=== PATIENT | female | born 1950 | race Caucasian/White ===

== ENCOUNTER 2023-12-06 11:55 | Inpatient (IN) | payer MEDICARE, SELFPAY ==
[2023-12-06] VITALS (15 sets, daily range): BP systolic 94–148; BP diastolic 49–65; PULSE 52–66; RESP 7–19; TEMP 34.7–36.4; O2SAT 88–99; BMI 31.3
--- NOTE | 2023-12-06 12:09 | DI.RAD.S_ITS ---
PROCEDURE: XR HIP W PEL IF DONE LT 2V INDICATIONS: fall, unable to move extremity TECHNIQUE: AP pelvis with lateral view(s) of the left hip(s). COMPARISON: None. FINDINGS: Bones: Comminuted, displaced intertrochanteric fracture of the left femoral neck. Pelvic ring appears intact. No suspicious bony lesions. Moderate-severe degenerative changes of the bilateral hips. Lower lumbar spondylosis. Soft tissues: The visualized bowel gas pattern is normal. No suspicious soft tissue calcifications. IMPRESSION: Moderately comminuted, displaced intertrochanteric left femoral neck fracture. Moderate-severe degenerative changes of the bilateral hips. Lower lumbar spondylosis. Dictated by: Alex Holliday M.D. on 12/06/2023 at 12:47 Approved by: Alex Holliday M.D. on 12/06/2023 at 12:48
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
--- NOTE | 2023-12-06 12:28 | DI.RAD.S_ITS ---
PROCEDURE: XR KNEE LT 1TO2V INDICATIONS: femoral neck frac TECHNIQUE: To views of the knee were acquired. COMPARISON: None. FINDINGS: Bones: Limited evaluation secondary to positioning. No definite fracture is seen. No suspicious bony lesions. Soft tissues: No joint effusion. No suspicious soft tissue calcifications. Atherosclerotic vascular calcifications. IMPRESSION: Evaluation is limited secondary to positioning. No definite fracture is seen. Dictated by: Jhonny Bhandari M.D. on 12/06/2023 at 13:53 Approved by: Jhonny Bhandari M.D. on 12/06/2023 at 13:54
[2023-12-06] MEDS: ONDANSETRON 4 MG/2 ML INJ IV (12:39)
[2023-12-06] MEDS: MORPHINE 4 MG/ML INJ IV (12:39)
[2023-12-06 12:41] LABS: INR 0.9 (0.9-1.3); Prothrombin Time 10.8 SECONDS (9.4-12.5)
[2023-12-06 12:42] LABS: Add Manual Diff / Slide Review NO; Basophils Absolute Auto 0 /uL (0-100); Basophils Percent Auto 0.5 % (0-2); Eosinophils Absolute Auto 200 /uL (0-450); Eosinophils Percent Auto 2.2 % (2-4); Hematocrit 36.7 % (36-46); Hemoglobin 12.4 g/dL (12.0-16.0); Lymphocytes Absolute Auto 2400 /uL (1100-4500); Lymphocytes Percent Auto 26.1 % (25-40); Mean Corpuscular HGB Conc 33.7 % (30-36); Mean Corpuscular Hemoglobin 32.4 PG (26-34); Monocytes Absolute Auto 600 /uL (0-900); Monocytes Percent Auto 6.7 % (3-14); Neutrophils Absolute Auto 6000 /uL (1500-7000); Neutrophils Percent Auto 64.5 % (50-75); Platelet Count 221 X10^3/uL (150-400); Red Blood Cell Count 3.82 X10^6/uL (4.0-5.2); Red Cell Distribution Width 12.9 % (11.6-14.8); White Blood Cell Count 9.3 X10^3/uL (4.5-11.0)
[2023-12-06 12:43] LABS: PTT Partial Thromboplastin Tim 30 SECONDS (25.1-36.5)
[2023-12-06 12:50] LABS: Alanine Aminotransferase 19 IU/L (<35); Albumin 3.8 g/dL (3.5-5.0); Albumin Globulin Ratio 1.5 (1.0-2.8); Alkaline Phosphatase 78 U/L (38-126); Aspartate Aminotransferase 46 IU/L (14-36); BUN Creatinine Ratio 21.9 (6-22); Bilirubin Total 1.2 mg/dL (0.2-1.3); Blood Urea Nitrogen 16 mg/dL (7-17); Calcium 9.5 mg/dL (8.4-10.2); Carbon Dioxide 24 mmol/L (22-32); Chloride 105 mmol/L (98-107); Creatine Kinase 62 U/L (30-135); Estimated Glomerular Filt Rate > 60 mL/min (>60); Globulin 2.5 g/dL (1.7-4.1); Glucose 140 mg/dL (80-110); HEMOLYSIS < 15 (0-50); Potassium 4.4 mmol/L (3.4-5.1); Sodium 136 mmol/L (137-145); Total Protein 6.3 g/dL (6.3-8.2)
[2023-12-06] MEDS: HYDROMORPHONE 0.5 MG INJ IV ×3 (13:02→22:38)
[2023-12-06 14:00] LABS: Appearance Urine UA CLEAR; Bilirubin Urine UA NEGATIVE (NEGATIVE); Color Urine UA YELLOW; Glucose Urine UA NEGATIVE (Negative); Ketones Urine UA TRACE (NEGATIVE); Leukocyte Esterase Urine UA NEGATIVE (NEGATIVE); Nitrite Urine UA NEGATIVE (Negative); Occult Blood Urine UA NEGATIVE (Negative); Protein Urine UA TRACE (Negative); Urobilinogen Urine UA 0.2 E.U./dL (0.2)
[2023-12-06 14:18] LABS: Bacteria Urine None Seen; Culture Indicated Urine Cult Not Indicated; RBC Urine None Seen (0-5/HPF); Squamous Epithelial Cell Urine 0-1 /HPF (0-5/HPF); Urine Volume 10mL (spun); WBC Urine None Seen (0-5/HPF)
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
[2023-12-06] MEDS: SODIUM CHLORIDE 0.9% 1,000 ML 100 ML IV (15:18)
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
[2023-12-06] MEDS: DULOXETINE 20 MG CAPSULE PO (22:36)
[2023-12-07] VITALS (18 sets, daily range): BP systolic 84–120; BP diastolic 35–72; PULSE 67–108; RESP 10–21; TEMP 35.9–36.6; O2SAT 89–100; BMI 31.3
--- NOTE | 2023-12-07 | DI.RAD.S_ITS ---
PROCEDURE: XR HIP W PEL IF DONE LT 2V INDICATIONS: left hip fracture repair TECHNIQUE: 2 views of the hip were acquired. COMPARISON: [facility], CR, XR HIP W PEL IF DONE LT 2V, 12/07/2023, 14:44. [facility], CR, XR HIP W PEL IF DONE LT 2V, 12/06/2023, 12:07. FINDINGS: Bones: Fixation of the left hip comminuted fracture, with improved anatomic alignment. Displaced left or trochanter fragment is again seen background moderate degenerative changes. Soft tissues: Soft tissue swelling and gas with skin roman. IMPRESSION: Postsurgical changes for left proximal femur comminuted fracture fixation. Displaced lesser trochanter fragment is again seen. Dictated by: Rickie Merritt M.D. on 12/07/2023 at 18:20 Approved by: Rickie Merritt M.D. on 12/07/2023 at 18:21
--- NOTE | 2023-12-07 | DI.RAD.S_ITS ---
PROCEDURE: XR HIP W PEL IF DONE LT 2V INDICATIONS: ORIF TECHNIQUE: AP and lateral spot fluoroscopic intraoperative images of the left hip. COMPARISON: [facility], CR, XR HIP W PEL IF DONE LT 2V, 12/06/2023, 12:07. FINDINGS: Intraoperative images demonstrate fixation of the previously seen comminuted left proximal femoral fracture with a gamma nail type device. Osseous alignment has improved when compared to the preoperative exam. Lesser trochanter fracture fragment remains displaced. IMPRESSION: Intraoperative images demonstrate left proximal femoral fixation hardware in appropriate position. Approved by: Darinel Champagne M.D. on 12/07/2023 at 17:14
[2023-12-07] MEDS: SODIUM CHLORIDE 0.9% 1,000 ML 100 ML IV ×2 (01:09→11:50)
[2023-12-07] MEDS: HYDROMORPHONE 0.5 MG INJ IV ×3 (03:56→17:45)
--- NOTE | 2023-12-07 06:18 | PC.NURSE ---
NOC: Pt exhibiting borderline lincoln w/ soft pressures, urine output 10mL/hr over shift 125 in total, bladder scan negative for retention, despite case in place. Informed coord and Dr Short, no reply from Dr Short before shift change. Passing information on to dayshift.
--- NOTE | 2023-12-07 07:36 | PM.PN.1 ---
Subjective Subjective Interval history: Summary: Admitted with ground level fall and hip fracture. Self blood pressure overnight. Subjective: Pain is somewhat controlled but she was breaking through before her next dose is due. Some nausea. No dyspnea or chest pain. Exam Vital Signs (past 8 hours): Fraction of Inspired Oxygen 28 SaO2/FiO2 Ratio 350 Oxygen Delivery Method Nasal Cannula Oxygen Flow Rate 2 Narrative Exam Narrative: NAD, alert and oriented. Fluent speech. Lungs are clear, normal rate and effort. Heart is regular, no murmur gallop or rub. Abdomen is soft, non distended. Extremities are free of edema. Objective Labs 12/07/23 07:52 12/07/23 07:52 Labs: Laboratory Results - last 24 hr 12/06/23 12/06/23 12/06/23 12:07 12:58 13:27 WBC 9.3 RBC 3.82 L Hgb 12.4 Hct 36.7 MCV 96.0 MCH 32.4 MCHC 33.7 RDW 12.9 Plt Count 221 Neut % (Auto) 64.5 Lymph % (Auto) 26.1 [place] % (Auto) 6.7 Eos % (Auto) 2.2 Baso % (Auto) 0.5 Neut # (Auto) 6000 Lymph # (Auto) 2400 [place] # (Auto) 600 Eos # (Auto) 200 Baso # (Auto) 0 PT 10.8 INR 0.9 APTT 30 Sodium 136 L Potassium 4.4 Chloride 105 Carbon Dioxide 24 BUN 16 Creatinine 0.73 Estimated GFR > 60 BUN/Creatinine Ratio 21.9 Glucose 140 H Calcium 9.5 Total Bilirubin 1.2 AST 46 H ALT 19 Alkaline Phosphatase 78 Total Creatine Kinase 62 Total Protein 6.3 Albumin 3.8 Globulin 2.5 Albumin/Globulin Ratio 1.5 Urine Color Yellow Urine Appearance Clear Urine pH 6.0 Ur Specific [place] 1.020 Urine Protein Trace H Urine Glucose (UA) Negative Urine Ketones Trace H Urine Occult Blood Negative Urine Nitrate Negative Urine Bilirubin Negative Urine Urobilinogen 0.2 Ur Leukocyte Esterase Negative Urine RBC None seen Urine WBC None seen Ur Squamous Epith Cells 0-1 /hpf Urine Bacteria None seen Ur Culture Indicated? Cult not indicated Vol Urine Centrifuged 10ml (spun) Blood Type O Negative Antibody Screen Negative [facility] Social History household members: spouse Smoking Status: Former smoker alcohol intake: former Assessment & Plan Assessment & Plan narrative: 1. Left femoral neck fracture, present on admission and active. 2. Ground level fall, present on admission and active. 3. Hypertension, present on admission and active. 4. CAD, present on admission and stable. Plan: -NPO at midnight -IV fluids -analgesics -orthopedics is consulted, repair today. -saline bolus -monitor hemoglobin -decrease pain medication interval Full resuscitation DAISY is 12/07. Inpatient status, anticipate 2 midnights of medically necessary hospital treatment for fall and hip fracture. Time-Based Coding :: [TOTAL MINUTES] spent with patient and on the chart (including review of chart, obtaining history, exam, reviewing outside data, placing orders, documenting exam and treatment plan, and counseling patient) on [DATE]. Quality VTE Deep Vein Thrombosis/Pulmonary Embolism Present on Admission: No
[2023-12-07 08:11] LABS: Hematocrit 26.7 % (36-46); Mean Corpuscular HGB Conc 33.9 % (30-36); Mean Corpuscular Hemoglobin 33.2 PG (26-34); Mean Corpuscular Volume 98.1 fL (80-100); Platelet Count 167 X10^3/uL (150-400); Red Blood Cell Count 2.72 X10^6/uL (4.0-5.2); White Blood Cell Count 6.7 X10^3/uL (4.5-11.0)
[2023-12-07] MEDS: SODIUM CHLORIDE 0.9% 1,000 ML 1000 ML IV (08:17)
[2023-12-07 08:20] LABS: BUN Creatinine Ratio 19.3 (6-22); Blood Urea Nitrogen 23 mg/dL (7-17); Calcium 8.5 mg/dL (8.4-10.2); Carbon Dioxide 26 mmol/L (22-32); Chloride 106 mmol/L (98-107); Estimated Glomerular Filt Rate 49 mL/min (>60); Glucose 103 mg/dL (80-110); HEMOLYSIS < 15 (0-50); Potassium 4.4 mmol/L (3.4-5.1); Sodium 135 mmol/L (137-145)
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
--- NOTE | 2023-12-07 12:56 | PM.PREOP ---
Pre-operative Note Interval Note History & Physical reviewed/Exam performed by Physician: Yes Changes to H&P: No
[2023-12-07] MEDS: LACTATED RINGERS 1,000 ML 42 ML IV ×2 (13:42→15:26)
--- NOTE | 2023-12-07 14:18 | PM.OP.1 ---
Operative Date/Time/Diagnoses Date of procedure: 12/07/23 Time of procedure: 14:19 Pre-op diagnosis: Left proximal femur fracture Post-op diagnosis: same Procedure & Clinicians Procedure: IM nail left proximal femur fracture Same procedure as scheduled: Yes Indications: This is a 73-year-old female who fell and sustained a comminuted left proximal femur fracture. She was brought the operating room for intramedullary nailing. The procedure options risks benefits and complications were discussed in detail. She does have a comminuted fracture. Surgeon: Ina Paul Click Yes if Unassisted: Yes Anesthesia Type: General and Spinal Operative Notes Findings: Comminuted fracture. Soft bone. Adequate reduction Closure Type: primary Specimen(s): none sent Prosthetic devices, grafts, tissues, transplants, or devices: Paul and nephSMTDP Technology trigen intertan 10mm by 20cm 125 degree, 95 compression screw, 35mm screw Estimated Blood Loss (mL): 250 Blood products transfused: none Procedure in detail: Patient was brought to the operating room. She under went a spinal anesthesia. She was transferred to the fracture table. She was given IV antibiotics. A time-out was performed. Her left lower extremity was prepped and draped in standard sterile fashion after meticulously reducing the fracture. Fluoroscopy was used during the procedure for establishing alignment. A left hip lateral skin incision was made dissection was carried down through skin and subcutaneous tissues. Fascia andrea was incised in line with the skin incision. Retractors were placed. The fracture was meticulously aligned a pin was placed proximally into the trochanteric. It was carefully advanced down and then it was reamed. The lateral wall of the greater trochanter was relatively comminuted. I specifically worked hard to medialized the pin insertion site and of the placement of the Reamer. The bone was relatively hard medially and I switched it out and then placed a guide jaxson which I advanced down into the femur and then reconfirmed on an AP and lateral x-ray that it was well-positioned in the femur. Then further work to make sure that the medial bone was adequately reamed in order to allow proper nail placement. A 10 mm x 20 cm 125 degree nail was selected. It was meticulously advanced down into the femur. I checked the reduction as I was placing it making sure that the fracture was still adequately aligned. The guide jaxson was removed. The proximal screws were placed by carefully positioning PN centrally in the head with room for the secondary lag screw and slightly inferior and posterior for better bone. Patient had actually fairly good bone. Surprisingly I had to use a Reamer in order to adequately advance the screw. The screw in the secondary compressive screw were placed. I did achieve about 5 mm of compression through the screw construct and I carefully checked with the image to make sure that I was adequately aligned and compressing the bony fragments. Fluoro was used to confirm the reduction as well as the position of the screws. Distal interlocking was performed without difficulty. The fracture was held reduced as the nail was introduced. Pins were placed in the femoral head and the femoral head was carefully aligned and reduced. The wound was meticulously irrigated with normal saline. The wound was closed with interrupted Vicryl and Monocryl. It was also closed with skin roman. The wound was dressed sterilely. Patient tolerated the procedure well transferred to recovery room in satisfactory condition. Complications: none Post-operative Condition: stable Disposition: Acute Care Plan for aftercare: Partial weight-bearing on the left lower extremity 50 lb max. Discharge to home when safe.
[2023-12-07] MEDS: CEFAZOLIN 2 GM/100 ML PREMIX 100 ML IV ×2 (14:35→21:47)
--- NOTE | 2023-12-07 15:02 | SUR.OPER ---
Supine on padded Cuddy table with operative leg secured in padded positioning boot and suspended in positioning spar, operative leg in traction per surgeon. Non-operative leg on padded leg rest. Head on one pillow. Arm on non-operative side secured on padded armboard <90 degrees abduction. Arm on operative side padded and resting across chest then secured with tape over sheet. Padded perineal post in place per surgeon.
[2023-12-07] MEDS: BUPIVACAINE LIPOSOME 266 MG/20 ML VIAL INJ (15:18)
[2023-12-07] MEDS: BUPIVACAINE 0.5% W/ EPI (PF) 30 ML VIAL INJ (15:18)
[2023-12-07] MEDS: ACETAMINOPHEN IV 1,000 MG/100 ML VIAL 400 MG IV (17:16)
[2023-12-07] MEDS: ONDANSETRON 4 MG/2 ML INJ IV (17:21)
[2023-12-07] MEDS: LACTATED RINGERS 1,000 ML 100 ML IV (18:37)
[2023-12-07] MEDS: ACETAMINOPHEN 325 MG TABLET 650 MG PO (21:46)
[2023-12-07] MEDS: SENNOSIDES 8.6 MG TABLET 17.2 MG PO (21:47)
[2023-12-07] MEDS: DOCUSATE 100 MG CAPSULE PO (21:47)
[2023-12-07] MEDS: ASPIRIN EC 81 MG TABLET PO (21:47)
[2023-12-08] VITALS (13 sets, daily range): BP systolic 103–136; BP diastolic 38–66; PULSE 83–104; RESP 10–18; TEMP 35.8–36.6; O2SAT 90–100
[2023-12-08 04:40] LABS: Add Manual Diff / Slide Review NO; Basophils Absolute Auto 0 /uL (0-100); Basophils Percent Auto 0.4 % (0-2); Eosinophils Absolute Auto 100 /uL (0-450); Eosinophils Percent Auto 0.9 % (2-4); Hematocrit 17.9 % (36-46); Lymphocytes Absolute Auto 1400 /uL (1100-4500); Lymphocytes Percent Auto 21.6 % (25-40); Mean Corpuscular HGB Conc 34.7 % (30-36); Mean Corpuscular Hemoglobin 33.3 PG (26-34); Mean Corpuscular Volume 96.1 fL (80-100); Monocytes Absolute Auto 600 /uL (0-900); Monocytes Percent Auto 9.6 % (3-14); Neutrophils Absolute Auto 4300 /uL (1500-7000); Neutrophils Percent Auto 67.5 % (50-75); Platelet Count 127 X10^3/uL (150-400); Red Blood Cell Count 1.86 X10^6/uL (4.0-5.2); Red Cell Distribution Width 12.4 % (11.6-14.8); White Blood Cell Count 6.3 X10^3/uL (4.5-11.0)
[2023-12-08] MEDS: LACTATED RINGERS 1,000 ML 100 ML IV (04:40)
[2023-12-08 04:43] LABS: Hemoglobin 6.2 g/dL (12.0-16.0)
[2023-12-08 04:53] LABS: BUN Creatinine Ratio 21.6 (6-22); Blood Urea Nitrogen 16 mg/dL (7-17); Calcium 8.1 mg/dL (8.4-10.2); Carbon Dioxide 26 mmol/L (22-32); Chloride 105 mmol/L (98-107); Estimated Glomerular Filt Rate > 60 mL/min (>60); Glucose 115 mg/dL (80-110); HEMOLYSIS < 15 (0-50); Sodium 132 mmol/L (137-145)
[2023-12-08] MEDS: diphenhydrAMINE 25 MG TABLET 50 MG PO (05:34)
[2023-12-08] MEDS: ACETAMINOPHEN 325 MG TABLET 650 MG PO (05:35)
--- NOTE | 2023-12-08 07:39 | P.PN_ITS ---
Subjective Subjective Date Patient Seen: 12/08/23 Time Patient Seen: 07:39 Interval history: Patient is found lying comfortably in bed. Pain primarily over the surgical site. Has difficulty raising her left leg. She has not gotten out of bed and ambulated. Catheter still in place. pain control with oral medications. Denies any new numbness or tingling in lower extremities. Exam Vital Signs (past 8 hours): - 12/08/23 00:05 12/08/23 04:00 12/08/23 05:39 Temperature 96.8 F L 96.4 F L 97.5 F L Pulse Rate 85 83 95 H Respiratory Rate 16 16 10 L Blood Pressure 113/38 L 103/44 L 114/42 L Pulse Oximetry 100 92 Oxygen Flow Rate 3 0 12/08/23 05:55 Temperature 97.9 F Pulse Rate 92 H Respiratory Rate 16 Blood Pressure 117/44 L Pulse Oximetry Oxygen Flow Rate Fraction of Inspired Oxygen 28 SaO2/FiO2 Ratio 350 Oxygen Delivery Method Nasal Cannula Oxygen Flow Rate 0 Narrative Exam Narrative: Patient found resting comfortably in bed. Aquacel dressings are clean dry and intact. Patient is able to dorsiflex and plantar flex at the left ankle against resistance. Sensation intact to light touch. Painful for patient to raise leg at the hip. One SCDs on. Objective Labs 12/08/23 04:12 12/08/23 04:12 Labs: Laboratory Results - last 24 hr 12/06/23 12/07/23 12/08/23 12:58 07:52 04:12 WBC 6.7 6.3 RBC 2.72 L 1.86 L Hgb 9.0 L 6.2 L* Hct 26.7 L 17.9 L* MCV 98.1 96.1 MCH 33.2 33.3 MCHC 33.9 34.7 RDW 13.0 12.4 Plt Count 167 127 L Neut % (Auto) 67.5 Lymph % (Auto) 21.6 L [place] % (Auto) 9.6 Eos % (Auto) 0.9 L Baso % (Auto) 0.4 Neut # (Auto) 4300 Lymph # (Auto) 1400 [place] # (Auto) 600 Eos # (Auto) 100 Baso # (Auto) 0 Sodium 135 L 132 L Potassium 4.4 4.0 Chloride 106 105 Carbon Dioxide 26 26 BUN 23 H 16 Creatinine 1.19 H 0.74 Estimated GFR 49 L > 60 BUN/Creatinine Ratio 19.3 21.6 Glucose 103 115 H Calcium 8.5 8.1 L Blood Type O Negative Antibody Screen Negative Crossmatch See Detail [facility] Social History household members: spouse Smoking Status: Former smoker alcohol intake: former Assessment & Plan Post-op Postoperative Procedures: Procedures Operation Date: 12/07/23 15:15 Actual Procedure Side Surgeon p left hip open reduction internal fixation- IM nailing of left femur Left Ina Paul MD Postoperative day: 1 Postoperative status: anemia Postoperative plan: routine post-op care and ambulate Postoperative plan narrative: Hemoglobin 6.2 hematocrit 17.9 platelets 127. Hospitalist notified he states he will start 1 unit of blood. Continue with multimodal pain control. Ambulate with physical therapy with assistance. Aspirin 81 mg b.i.d. for VTE prophylaxis. SCDs on when resting in bed. Discharge when medically stable. Time Spent With Patient Time with patient: less than 15 minutes Quality VTE Deep Vein Thrombosis/Pulmonary Embolism Present on Admission: No
[2023-12-08] MEDS: CEFAZOLIN 2 GM/100 ML PREMIX 100 ML IV (08:01)
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
--- NOTE | 2023-12-08 08:29 | OT.IPNOTE ---
Pt low HH and to get one unit of blood today, hold OT eval and check on pt later or tomorrow.
[2023-12-08] MEDS: polyethylene glycoL 3350 17 GM POWD.PACK PO (08:45)
[2023-12-08] MEDS: ASPIRIN EC 81 MG TABLET PO ×2 (08:45→21:20)
[2023-12-08] MEDS: DOCUSATE 100 MG CAPSULE PO ×2 (08:45→21:20)
[2023-12-08] MEDS: Sacubitril-Valsartan [Entresto] 24-26 mg tablet 1 EACH PO ×2 (08:46→21:27)
[2023-12-08] MEDS: DULOXETINE 20 MG CAPSULE PO ×2 (09:54→21:20)
--- NOTE | 2023-12-08 11:17 | PT-IP ANOTE ---
PT eval order received and EMR reviewed. pt with Hgb 6.2 and Hct 17.9. per hospitalist note: pt to receive 2L blood tranfusion. Talked with nurse and nurse confirmed. nurse stated that pt already on 2nd unit of blood and H&H repeat at ~ noon today. Hold PT this morning due to blood transfusion. will f/u after H&H result
[2023-12-08] MEDS: HYDROCODONE/ACET 5/325 TABLET 1 TAB PO ×2 (12:30→17:22)
[2023-12-08 12:36] LABS: Hematocrit 27.8 % (36-46); Hemoglobin 9.8 g/dL (12.0-16.0)
--- NOTE | 2023-12-08 14:15 | CM.DPNOTE ---
DCP Note MANAGER COST reviewed EMR. Per hospitalist, anticipates needing SNF. Pt getting two units of blood today. Per ortho surgeon, encouraged family to come up with a home plan rather than dc to SNF. Per chart, pt H&H too low for PT/OT to work with this morning. Will check back in afternoon. MANAGER COST met with pt/spouse/son in room. Introduced self and role. Reviewed various options pending post op needs/family preferences. Pt prefers to dc home with family support. Confirm spouse and son working on getting necessary equipment at home. No stairs in the home. PCP is Dr. Apolinar Jo from the [facility] residency clinic. Preference would be home with HH. MANAGER COST gave pt and family sheet of SNF/HH options, reviewing now for preference. P: pending PT/OT recs/family preference when H&H stabilizes. HH / SNF referrals needed. If HH, f2f/order needed. If SNF, PASRR needed. Anticipate home with HH. Follow closely LANRE Espinal
--- NOTE | 2023-12-08 14:30 | PT.IIE ---
Current Diagnoses Fracture of unspecified part of neck of left femur, initial encounter for closed fracture (12/06/23) Surgery Performed Operation Date: 12/07/23 15:15 Actual Procedures p left hip open reduction internal fixation- IM nailing of left femur(Left) - Ina Paul MD Physical Therapy Inpatient Evaluation/Re-Eval M1 PT/OT-IP Prior Functional Status Start: 12/08/23 16:10 Freq: NEEDED Status: Active Protocol: Document 12/08/23 14:30 AB (Rec: 12/08/23 16:44 AB [id number]) Medical Review Prior Functional Status Communication able to make needs known Mobility and Gait pt stated that she was independent with all mobilities and ambulation without AD but uses a SPC for outdoor long distance ambulation; lean on shopping cart when out doing groceries due to B hip pain Activities of Daily Living and IADL's per OT note:Completely independent for all needs. Social History Household Members spouse Living Arrangements House Number of Floors (Floors) One Floor Number of Stairs To Enter/Railing? No steps to enter. Home Environment Standard Height Toilet,Tub/ Shower Home Equipment Straight Cane,Long Handled Sponge,Long Handled Shoe Horn, Radio Board Operator,Grab Bars In Shower Additional Social History Comment Pt has a high bed M2 PT-IP Current Condition Start: 12/08/23 16:10 Freq: NEEDED Status: Active Protocol: Document 12/08/23 14:30 AB (Rec: 12/08/23 16:44 AB [id number]) Physical Therapy Current Condition Current Condition Evaluation Date 12/08/23 Treatment Diagnosis L proximal femur fx s/p ORIF; difficulty in walking Onset Date 12/06/23 M3 PT-IP Subjective Start: 12/08/23 16:10 Freq: NEEDED Status: Active Protocol: Document 12/08/23 14:30 AB (Rec: 12/08/23 16:44 AB [id number]) Subjective Physical Therapy Visit Type Type Initial Evaluation Visit Start Time 14:30 Visit Stop Time 15:10 Number of BRASS CHASER Visits 0 Physical Therapy Visit Comments Patient Comments agreeable to do PT Therapy Pain Assessment Pain When Pain Assessed At Rest Pain Present Pain Present Pain Reported Location Left hip Intensity 1 Scale Used increases with mobility Pain Behaviors Guarding,Holding Area Pain Management Techniques Apply Cold,Distraction, Modification of Treatment,Re- positioning,Timing of Activity with Medications M4 PT-IP Mobility and Gait Start: 12/08/23 16:10 Freq: NEEDED Status: Active Protocol: Document 12/08/23 14:30 AB (Rec: 12/08/23 16:44 AB [id number]) PT-Bed Mobility Assessment Supine to Sit Supine to Sit Maximum Assistance,2 Person Assistance,Head of Bed Elevated,Bedrails Sit to Supine Sit to Supine Maximum Assistance,Total Assistance,2 Person Assistance ,Bedrails Scooting Scooting to Edge of Bed Maximum Assistance PT-Transfer Assessment Sit to and From Stand Sit to and from Stand Maximum Assistance,2 Person Assistance,Use of Upper Extremities Comments Mobility Comments Pt on hold this morning due to low H&H. pt received blood transfusion. current Hgb: 9.8 Hct 27.8. pt supine in bed and agreeable to do PT. obtained PLOF and home set up from pt. BP in supine: 126/74 . educated pt on LLE partial weight bearing of 50#. heel slide conducted prior to mobility. pt completed supine to sit max A x 2 and max cues. HOB elevated. pt able to sit on EOB needing min A and cues to decrease posterior leaning. BP sittin/55. c/o increase hip pain. pt sat for ~ 2 more minutes. BP checked : 108/59. c/o slight dizziness. pt sat for a few more minutes and BP checked again: 118/64. pt agreed to stand. PT demonstrated and educated pt regarding techniques for sit to stand and standing using FWW to be able to maintain 50# PWB LLE. pt completed sit to stand from EOB max A x 2 and max cues. required max A x 2 for standing balance using FWW for support and max cues and support for PWB on LLE. pt only tolerated ~ 5 sec standing and needs to sit back down. c/o pain and weakness. pt requested to go back to bed. BP checked in sittin/56 after standing. pt assisted back to bed requiring max A x 2 to total A x 2 and max cues. positioned pt in bed total A x 2. call light and table placed within reach. informed pt regarding current mobility assistance, DME needs and SNF rehab recommendation. pt does not want to go to SNF. Left pt with OT in room. Gait Assessment Comments Gait Comments unable at this time PT-Balance Assessment Sitting Balance and Reactions Static Sitting Balance Ability Fair Dynamic Sitting Balance Ability Poor Standing Balance and Reactions Static Standing Balance Ability Poor Dynamic Standing Balance Ability Poor Device Used FWW M5 PT-IP Objective Assessments Start: 12/08/23 16:10 Freq: NEEDED Status: Active Protocol: Document 12/08/23 14:30 AB (Rec: 12/08/23 16:44 AB [id number]) Orientation Orientation/Cognition Level of Alertness Alert Orientation Name,Place,Situation Language Function Ability No Deficits Noted Safety Awareness Decreased Safety Awareness Memory Description No Deficits Noted Gross Range of Motion Lower Extremity ROM Impairments LLE tightness and guarding with increase pain with movement Strength Lower Extremity Strength Assessment Left Impaired Hip 2+/5 Knee 3/5 Coordination Assessment Gross Coordination Gross Coordination WNL Muscle Tone Muscle Tone WNL Yes M6 PT-IP Treatment Start: 12/08/23 16:10 Freq: NEEDED Status: Active Protocol: Document 12/08/23 14:30 AB (Rec: 12/08/23 16:44 AB [id number]) Physical Therapy Treatment Exercises Exercises Heel Slides Education Education Provided Precautions,Weight Bearing Status,Post-Op Packet,Safety M7 PT-IP Assessment and Plan Start: 12/08/23 16:10 Freq: NEEDED Status: Active Protocol: Document 12/08/23 14:30 AB (Rec: 12/08/23 16:44 AB [id number]) PT Summary Assessment and Plan Potential Rehabilitation Potential Fair Status of Condition at Evaluation Evolving Summary Impairments Pain,ROM,Strength,Balance, Coordination,Sensation,Tone, Cognition,Bed Mobility, Transfers,Gait,Activity Tolerance Assessment Summary pt is a 73 y/o F s/p fall and sustained a L proximal femur fx. Pt underwent IM nailing POD 1. pt is 50# PWB on LLE. pt requiring max A x 2 to total A x 2 with bed mobility and sit to stand but unable to tolerate standing to be able to transfer or ambulate at this time. recommending mechanical lift transfers with nursing staff. pt will need SNF rehab. pt refusing SNF rehab and informed pt regarding needing 05/10, 2 person assist and DME needs if pt decides to go home. will continue to assess progress. Goals Bed Mobility Goal Minimal Assistance Transfer Goal Minimal Assistance,Front Wheeled Walker Gait Goal Minimal Assistance,Front Wheel Walker Gait Distance 25 Other Goals improve bed mobility, transfers, ambulation ~ 50 ft using FWW SBA Days to Meet Goals 10 Frequency of Treatment Other frequency 1-2x/day Treatment Plan Physical Therapy Treatment Plan Bed Mobility Training,Transfer Training,Gait Training, Therapeutic Exercise,Balance Retraining,Post Op Education, Discharge Planning,Hot or Cold Pack,Neuromuscular Re-ed, Coordination Retraining,Manual Therapy Weight Bearing Status Weight Bearing Status Partial Weight Bearing Allowed Weight Bearing Amount (enter % LLE 50# PWB or #) (%) Recommendations To Nursing Amount of Assist Needed Mechanical Lift Discharge Recommendations PT Discharge Recommendations SNF Rehab Equipment Needed for Home Before FWW, w/c Discharge Transportation Needs at Discharge Wheelchair/Cabulance,Stretcher /Ambulance
--- NOTE | 2023-12-08 15:15 | OT.IP.EVAL ---
Current Diagnoses Fracture of unspecified part of neck of left femur, initial encounter for closed fracture (12/06/23) Surgery Performed Operation Date: 12/07/23 15:15 Actual Procedures p left hip open reduction internal fixation- IM nailing of left femur(Left) - Ina Paul MD Occupational Therapy Inpatient Evaluation/Re-Eval M1 PT/OT-IP Prior Functional Status Start: 12/08/23 15:17 Freq: NEEDED Status: Active Protocol: Document 12/08/23 15:17 [facility] (Rec: 12/08/23 15:33 [facility] [id number]) Medical Review Prior Functional Status Communication Independent Mobility and Gait Use of SPC for longer distances. Lean on the shopping cart for grocery shopping. Activities of Daily Living and IADL's Completely independent for all needs. Social History Household Members spouse Living Arrangements House Number of Floors (Floors) One Floor Number of Stairs To Enter/Railing? NO steps to enter. Home Environment Standard Height Toilet,Walk in Shower,Tub/Shower Home Equipment Straight Cane,Long Handled Sponge,Long Handled Shoe Horn, Supervisor Cigar Processing,Grab Bars In Shower Additional Social History Comment Pt has a high bed. M2 OT-IP Current Condition Start: 12/08/23 15:17 Freq: Status: Active Protocol: Document 12/08/23 15:17 [facility] (Rec: 12/08/23 15:33 [facility] [id number]) Occupational Therapy Current Condition Current Condition Evaluation Date 12/08/23 Treatment Diagnosis Left femoral neck fracture, s/ p L hip ORIF Diagnosis Onset Date 12/06/23 Weight Bearing Status Weight Bearing Status Partial Weight Bearing Allowed Weight Bearing Amount (enter % Per Dr. Paul's note no or #) (%) greater than 50# on the LLE M3 OT- IP Subjective and Pain Start: 12/08/23 15:17 Freq: Status: Active Protocol: Document 12/08/23 15:17 [facility] (Rec: 12/08/23 15:33 [facility] [id number]) OT- Subjective Occupational Therapy Visit Type Type Initial Evaluation Visit Start Time 14:30 Visit Stop Time 15:15 Occupational Therapy Visit Comments Patient Comments Pt agreed to get up. Patient/Caregiver Goals TO go home, but open to going to skilled rehab if needed. OT Pain Assessment Pain When Pain Assessed During Mobility Pain Present Pain Present Pain Reported Location Left hip Pain Behaviors Facial Grimacing,Guarding, Holding Area M4 OT- IP ADL's Start: 12/08/23 15:17 Freq: Status: Active Protocol: Document 12/08/23 15:17 [facility] (Rec: 12/08/23 15:33 [facility] [id number]) OT [id number] Comments OT Self-Feeding Comments Not at meal time, no issues anticipated. OT ADL-Grooming Comments OT Grooming Comments NOt performed. OT ADL-Oral Care Comments Oral Care Comments Not performed. OT ADL-Dressing General Eval Lower Body Dressing Ability Maximum Assistance Areas Needing Assistance Socks Comments OT Dressing Comments Pt will need assist for all LB dressing needs at this time and will benefit from assist and use of LB dressing equipment when moving better. OT ADL-Toileting General Evaluation Toileting Ability Total Assistance Areas Needing Assistance Empty Catheter or Colostomy Comments OT Toileting Comments Cevallos in place. OT ADL-Bathing Bathing Type Bathing Type Sponge Bath Comments OT Bathing Comments Sponge bath more appropriate at this time. M6 OT- IP Functional Cognition Start: 12/08/23 15:17 Freq: Status: Active Protocol: Document 12/08/23 15:17 [facility] (Rec: 12/08/23 15:33 [facility] [id number]) Cognitive Factors Limiting Selfcare Function Cognitive Ability Level of Alertness Alert Patient Orientation Name,Age,Birthday,Month,Year, Place,Situation Attention Span Ability Capable of Focused Attention, Capable of Sustained Attention Ability to Follow Commands Able to Follow One Step Commands Cognitive Comments Cognitive Assessment Comments Pt able to follow commands for mobility needs. Pt is surprised that she is not moving as well as she thought that she would be able to do. Pt states prior works out 3x/ week. OT- Vision and Hearing OT- Vision Assessment Visual Acuity Glasses For Reading Visual Attentiveness WFL Occular Pursuits WFL M7 OT- IP Mobility and Balance Start: 12/08/23 15:17 Freq: Status: Active Protocol: Document 12/08/23 15:17 [facility] (Rec: 12/08/23 15:33 [facility] [id number]) OT- Bed Mobility Assessment Supine to Sit Supine to Sit Assist Maximum Assistance,2 Person Assistance Sit to Supine Sit to Supine Assist Maximum Assistance,2 Person Assistance Scooting Scooting to Edge of Bed Maximum Assistance,1 Person Assistance,2 Person Assistance OT-Transfer Assessment Sit to and From Stand Sit to and from Stand Maximum Assistance,2 Person Assistance Comments Mobility Comments MAXAX 2 to get to the edge of the bed and use of green pad to assist, assist to move the LLE, and to get her trunk upright. MAX AX 2 to stand to the FWW and having difficulty to maintain her 50#weight bearing limit at this time. BP supine 125/74, sitting 119/55 , 108/59, and 118/64, BP after standing 109/52 and feeling woozy and weak. OT- Balance Assessment Sitting Balance and Reactions Static Sitting Balance Ability Poor Dynamic Sitting Balance Ability Poor Standing Balance and Reactions Static Standing Balance Ability Poor Dynamic Standing Balance Ability Poor Comments Other Balance Tests/Deviations/Treatment CGA/DEONNA to help sit upright as : leaning off her left hip and slightly posteriorly as well. M8 OT- IP Objective Assessments Start: 12/08/23 15:17 Freq: Status: Active Protocol: Document 12/08/23 15:17 [facility] (Rec: 12/08/23 15:33 [facility] [id number]) OT Gross Range of Motion Upper Extremity Range of Motion Assessment Within Functional Limits OT Strength Upper Extremity Strength Assessment Within Functional Limits M9 OT- IP Assessment and Plan Start: 12/08/23 15:17 Freq: Status: Active Protocol: Document 12/08/23 15:17 [facility] (Rec: 12/08/23 15:33 [facility] [id number]) OT Summary Assessment and Plan Potential Rehabilitation Potential Good Analytic Complexity at Evaluation Moderate Summary OT Impairments Pain,Range of Motion,Strength, Balance,Functional Mobility, Grooming,Dressing,Toileting, Bathing,Toilet Transfers, Shower Transfers,Activity Tolerance Progress Towards Goals Slow Progress due to Pain,Slow Progress due to Medical Issues Assessment Summary Pt MOD complexity and main barriers are pain, decreased ability to move her LLE at this time, needing MAX AX a fro bed mobility and to come to stand to the FWW, pt feeling woozy when sitting and up on her feet. Pt wanting to go home but realizing that may be best to go to skilled rehab at this time. Went over equipment needs if going home and would need 2 person assist for needs. Goals Self-Feeding Goal Independent Grooming Goal Independent Dressing Goal Moderate Assistance Toileting Goal Moderate Assistance Bathing Goal Moderate Assistance Toilet Transfer Goal Minimal Assistance Shower Transfer Goal Moderate Assistance Days to Meet Goals 20 Frequency of Treatment Other frequency 5x/week Treatment Plan OT Treatment Plan ADL Training,Functional Mobility,Patient/Family Education,Discharge Planning Other Treatment Recommendations and Next Transfer with [place] [facility] [place] with MODA X2. Discharge Recommendations OT Discharge Recommendations SNF Rehab Transportation Needs at Discharge Wheelchair/Cabulance
[2023-12-08] MEDS: SENNOSIDES 8.6 MG TABLET 17.2 MG PO (21:20)
[2023-12-09 00:05] VITALS: BP 124/59; PULSE 88; RESP 18; TEMP 36.4; O2SAT 95
[2023-12-09 04:31] LABS: Add Manual Diff / Slide Review NO; Basophils Absolute Auto 0 /uL (0-100); Basophils Percent Auto 0.6 % (0-2); Eosinophils Absolute Auto 200 /uL (0-450); Eosinophils Percent Auto 2.9 % (2-4); Hematocrit 25.6 % (36-46); Lymphocytes Absolute Auto 1600 /uL (1100-4500); Lymphocytes Percent Auto 27.7 % (25-40); Mean Corpuscular HGB Conc 35.3 % (30-36); Mean Corpuscular Hemoglobin 32.6 PG (26-34); Mean Corpuscular Volume 92.2 fL (80-100); Monocytes Absolute Auto 600 /uL (0-900); Monocytes Percent Auto 11.2 % (3-14); Neutrophils Absolute Auto 3200 /uL (1500-7000); Neutrophils Percent Auto 57.6 % (50-75); Platelet Count 117 X10^3/uL (150-400); Red Blood Cell Count 2.77 X10^6/uL (4.0-5.2); Red Cell Distribution Width 14.2 % (11.6-14.8); White Blood Cell Count 5.6 X10^3/uL (4.5-11.0)
[2023-12-09 04:48] LABS: BUN Creatinine Ratio 16.7 (6-22); Blood Urea Nitrogen 11 mg/dL (7-17); Calcium 8.2 mg/dL (8.4-10.2); Carbon Dioxide 29 mmol/L (22-32); Chloride 105 mmol/L (98-107); Estimated Glomerular Filt Rate > 60 mL/min (>60); Glucose 101 mg/dL (80-110); HEMOLYSIS < 15 (0-50); Sodium 134 mmol/L (137-145)
[2023-12-09 08:38] VITALS: BP 128/66; PULSE 94; RESP 19; TEMP 36.6; O2SAT 96
[2023-12-09] MEDS: Sacubitril-Valsartan [Entresto] 24-26 mg tablet 1 EACH PO (08:43)
[2023-12-09] MEDS: DOCUSATE 100 MG CAPSULE PO ×2 (08:43→20:46)
[2023-12-09] MEDS: polyethylene glycoL 3350 17 GM POWD.PACK PO (08:43)
[2023-12-09] MEDS: DULOXETINE 20 MG CAPSULE PO ×2 (08:44→20:46)
[2023-12-09] MEDS: ASPIRIN EC 81 MG TABLET PO ×2 (08:44→20:47)
[2023-12-09] MEDS: HYDROCODONE/ACET 5/325 TABLET 1 TAB PO ×2 (09:05→15:11)
--- NOTE | 2023-12-09 10:12 | PM.PN.1 ---
Subjective Subjective Interval history: Summary: Admitted for hip fracture status post ORIF on December 06. She was blood-loss anemia. Subjective: Her pain is better controlled today, however there is still significant pain with any hip movement. No dyspnea. No leg swelling. She has a Cevallos catheter in place and denies any recent bowel movements. Exam Vital Signs (past 8 hours): - 12/09/23 08:38 Temperature 97.8 F Pulse Rate 94 H Respiratory Rate 19 Blood Pressure 128/66 Pulse Oximetry 96 Fraction of Inspired Oxygen 28 SaO2/FiO2 Ratio 350 Oxygen Delivery Method Nasal Cannula Oxygen Flow Rate 2 Narrative Exam Narrative: NAD, alert and oriented. Fluent speech. Lungs are clear, normal rate and effort. Heart is regular, no murmur gallop or rub. Abdomen is soft, non distended. Extremities are free of edema. Objective Labs 12/09/23 04:12 12/09/23 04:12 Labs: Laboratory Results - last 24 hr 12/06/23 12/08/23 12/09/23 12:58 12:30 04:12 WBC 5.6 RBC 2.77 L Hgb 9.8 L 9.0 L Hct 27.8 L 25.6 L MCV 92.2 D MCH 32.6 MCHC 35.3 RDW 14.2 Plt Count 117 L Neut % (Auto) 57.6 Lymph % (Auto) 27.7 Door % (Auto) 11.2 Eos % (Auto) 2.9 Baso % (Auto) 0.6 Neut # (Auto) 3200 Lymph # (Auto) 1600 Door # (Auto) 600 Eos # (Auto) 200 Baso # (Auto) 0 Sodium 134 L Potassium 4.0 Chloride 105 Carbon Dioxide 29 BUN 11 Creatinine 0.66 Estimated GFR > 60 BUN/Creatinine Ratio 16.7 Glucose 101 Calcium 8.2 L Crossmatch See Detail COUNT INCLUDES THE [facility] Social History household members: spouse Smoking Status: Former smoker alcohol intake: former Assessment & Plan Assessment & Plan narrative: 1. Left femoral neck fracture, present on admission and active. Status postoperative repair on 12/06. 2. Ground level fall, present on admission and active. 3. Hypertension, present on admission and active. 4. CAD, present on admission and stable. 5. Blood loss anemia secondary to fracture. Plan: -2 unit of blood 12/07. -stop IV fluids -analgesics -monitor hemoglobin -decrease pain medication interval -PT and OT evaluations. Full resuscitation [facility]ISY is 12/09. jail facility anticipated. She was hoping to not go to the nursing facility, this seems unlikely. A referral was sent [facility]. Time-Based Coding :: [TOTAL MINUTES] spent with patient and on the chart (including review of chart, obtaining history, exam, reviewing outside data, placing orders, documenting exam and treatment plan, and counseling patient) on [DATE]. Quality VTE Deep Vein Thrombosis/Pulmonary Embolism Present on Admission: No
--- NOTE | 2023-12-09 10:45 | PT.IPTN ---
Current Diagnoses Fracture of unspecified part of neck of left femur, initial encounter for closed fracture (12/06/23) Surgery Performed Operation Date: 12/07/23 15:15 Actual Procedures p left hip open reduction internal fixation- IM nailing of left femur(Left) - Ina Paul MD Physical Therapy Treatment Note M2 PT-IP Current Condition Start: 12/08/23 16:10 Freq: NEEDED Status: Active Protocol: Document 12/08/23 14:30 AB (Rec: 12/08/23 16:44 AB [id number]) Physical Therapy Current Condition Current Condition Evaluation Date 12/08/23 Treatment Diagnosis L proximal femur fx s/p ORIF; difficulty in walking Onset Date 12/06/23 M3 PT-IP Subjective Start: 12/08/23 16:10 Freq: NEEDED Status: Active Protocol: Document 12/09/23 12:26 TS (Rec: 12/09/23 12:47 TS [id number]) Subjective Physical Therapy Visit Type Type Treatment Note Visit Start Time 10:45 Visit Stop Time 11:28 Number of BOARD OPERATOR Visits 1 Physical Therapy Visit Comments Patient Comments Pt found resting in bed, reports she is feeling better today, would like to get out of bed. Therapy Pain Assessment Pain When Pain Assessed During Mobility Pain Present Pain Present Pain Reported M4 PT-IP Mobility and Gait Start: 12/08/23 16:10 Freq: NEEDED Status: Active Protocol: Document 12/09/23 12:26 TS (Rec: 12/09/23 12:47 TS [id number]) PT-Bed Mobility Assessment Supine to Sit Supine to Sit Minimal Assistance,1 Person Assistance,Head of Bed Elevated,Bedrails Scooting Scooting to Edge of Bed Contact Guard Assistance PT-Transfer Assessment Sit to and From Stand Sit to and from Stand Minimal Assistance,1 Person Assistance Equipment Transfer Assistive Device Gait Belt,Front Wheeled Walker Transfers Transfer Destination Chair Transfer Technique Stand Step Pivot Transfer Ability Level of Assist Moderate Assistance,1 Person Assistance Comments Mobility Comments BP 119/58. Supine to sit Krishna for uprighting trunk, pt uses gait belt strap to assist LLE to EOB. STS with FWW from the bed Krishna, scale under foot to deonstrate PWB of 50#'s. She performs stand step pivot to the chair ModA with FWW and cues were slow control into the chair. STS from the chair with assist from spouse. She ambulates ~10' in the room and onto the commode. After use of the commode she attempts to perform x1 step with FWW but could not get feet off ground. BP in sitting 87/46, pt is orthostatic. She was left sitting up in the chair, all needs met. Gait Assessment Gait Gait Assistance Required: Minimum Assistance Distance (Feet) 10 Able to Maintain Weight Bearing Status Yes During Gait Assistive Devices Assistive Device Front Wheeled Walker Orthotic/Prosthetic Devices or Brace: No Gait Deviations General Gait Pattern Antalgic,Decreased Stride Length,Decreased Feet Clearance,Step-to Gait Factors Limiting Gait Function Factors Limiting Gait Function Decreased Activity Tolerance, Decreased Strength,Pain,Poor Balance,Poor Safety Awareness Stair Climbing Assessment Comments Stair Climbing Comments unable at this time PT-Balance Assessment Sitting Balance and Reactions Static Sitting Balance Ability Normal Dynamic Sitting Balance Ability Good Standing Balance and Reactions Static Standing Balance Ability Good Dynamic Standing Balance Ability Fair Device Used FWW M5 PT-IP Objective Assessments Start: 12/08/23 16:10 Freq: NEEDED Status: Active Protocol: Document 12/08/23 14:30 AB (Rec: 12/08/23 16:44 AB [id number]) Orientation Orientation/Cognition Level of Alertness Alert Orientation Name,Place,Situation Language Function Ability No Deficits Noted Safety Awareness Decreased Safety Awareness Memory Description No Deficits Noted Gross Range of Motion Lower Extremity ROM Impairments LLE tightness and guarding with increase pain with movement Strength Lower Extremity Strength Assessment Left Impaired Hip 2+/5 Knee 3/5 Coordination Assessment Gross Coordination Gross Coordination WNL Muscle Tone Muscle Tone WNL Yes M6 PT-IP Treatment Start: 12/08/23 16:10 Freq: NEEDED Status: Active Protocol: Document 12/09/23 12:26 TS (Rec: 12/09/23 12:47 [id number]) Physical Therapy Treatment Exercises Exercises Ankle Pumps,Gluteal Sets,Quad Sets,Heel Slides Education Education Provided Precautions,Weight Bearing Status,Post-Op Packet,Safety Other Treatments Other Treatment Performed Performs in bed prior to mobility. M7 PT-IP Assessment and Plan Start: 12/08/23 16:10 Freq: NEEDED Status: Active Protocol: Document 12/09/23 12:26 TS (Rec: 12/09/23 12:47 TS [id number]) PT Summary Assessment and Plan Potential Rehabilitation Potential Fair Summary Impairments Pain,ROM,Strength,Balance, Coordination,Sensation,Tone, Cognition,Bed Mobility, Transfers,Gait,Activity Tolerance Progress Towards Goals Slow Progress due to Pain,Slow Progress due to Activity Tolerance,Slow Progress - Other Assessment Summary Pauline made some progress this session but she continues to be limited by pain, activity tolerance and hypotension. She required decreased assist for bed mobility and gait. She progressed her gait to ~10' Krishna with FWW. She ambulates TTWB, pt is allowed PWB of #50 's, was demosntrated with use of scale. PT is recommending SNF at this time, pt is agreeable. Goals Bed Mobility Goal Minimal Assistance Transfer Goal Minimal Assistance,Front Wheeled Walker Gait Goal Minimal Assistance,Front Wheel Walker Gait Distance 25 Other Goals improve bed mobility, transfers, ambulation ~ 50 ft using FWW SBA Days to Meet Goals 10 Frequency of Treatment Other frequency 1-2x/day Treatment Plan Physical Therapy Treatment Plan Bed Mobility Training,Transfer Training,Gait Training, Therapeutic Exercise,Balance Retraining,Post Op Education, Discharge Planning,Hot or Cold Pack,Neuromuscular Re-ed, Coordination Retraining,Manual Therapy Weight Bearing Status Weight Bearing Status Partial Weight Bearing Allowed Weight Bearing Amount (enter % Per Dr. Paul's note no or #) (%) greater than 50# on the LLE Recommendations To Nursing Amount of Assist Needed 1 Person Assist Discharge Recommendations PT Discharge Recommendations SNF Rehab Equipment Needed for Home Before FWW, w/c Discharge Transportation Needs at Discharge Wheelchair/Cabulance
--- NOTE | 2023-12-09 11:46 | OT.IP.TRT ---
Current Diagnoses Fracture of unspecified part of neck of left femur, initial encounter for closed fracture (12/06/23) Surgery Performed Operation Date: 12/07/23 15:15 Actual Procedures p left hip open reduction internal fixation- IM nailing of left femur(Left) - Ina Paul MD Occupational Therapy Treatment Note M2 OT-IP Current Condition Start: 12/08/23 15:17 Freq: Status: Active Protocol: Document 12/08/23 15:17 [facility] (Rec: 12/08/23 15:33 [facility] [id number]) Occupational Therapy Current Condition Current Condition Evaluation Date 12/08/23 Treatment Diagnosis Left femoral neck fracture, s/ p L hip ORIF Diagnosis Onset Date 12/06/23 Weight Bearing Status Weight Bearing Status Partial Weight Bearing Allowed Weight Bearing Amount (enter % Per Dr. Paul's note no or #) (%) greater than 50# on the LLE M3 OT- IP Subjective and Pain Start: 12/08/23 15:17 Freq: Status: Active Protocol: Document 12/09/23 11:28 [facility] (Rec: 12/09/23 11:45 [facility] [id number]) OT- Subjective Occupational Therapy Visit Type Type Treatment Note Visit Start Time 10:45 Visit Stop Time 11:28 Occupational Therapy Visit Comments Patient Comments Pt agreed to get up and her in the room. Patient/Caregiver Goals TO get better. OT Pain Assessment Pain When Pain Assessed During Mobility Pain Present Pain Present Pain Reported Location Left hip Pain Behaviors Guarding,Holding Area M4 OT- IP ADL's Start: 12/08/23 15:17 Freq: Status: Active Protocol: Document 12/09/23 11:28 [facility] (Rec: 12/09/23 11:45 [facility] [id number]) OT TAX-Dgnd-Epnbxvp General Evaluation Self-Feeding Ability Independent OT ADL-Dressing General Eval Lower Body Dressing Ability Maximum Assistance Areas Needing Assistance Socks Comments OT Dressing Comments Pt will need assist for LB dressing needs at this time. Re educated of dressing the LLE first and taking it out last. OT ADL-Toileting General Evaluation Toileting Ability Minimal Assistance Areas Needing Assistance Manage Clothing Comments OT Toileting Comments Pt will need assist for clothing needs at this time. OT ADL-Bathing Comments OT Bathing Comments Not performed. M6 OT- IP Functional Cognition Start: 12/08/23 15:17 Freq: Status: Active Protocol: Document 12/09/23 11:28 [facility] (Rec: 12/09/23 11:45 [facility] [id number]) Cognitive Factors Limiting Selfcare Function Cognitive Comments Cognitive Assessment Comments INtact. M7 OT- IP Mobility and Balance Start: 12/08/23 15:17 Freq: Status: Active Protocol: Document 12/09/23 11:28 [facility] (Rec: 12/09/23 11:45 [facility] [id number]) OT- Bed Mobility Assessment Supine to Sit Supine to Sit Assist Minimal Assistance OT-Transfer Assessment Sit to and From Stand Sit to and from Stand Moderate Assistance,1 Person Assistance Transfers Transfer Ability Moderate Assistance,1 Person Assistance Technique Transfer Destination Bed,Bedside Commode,Chair Comments Mobility Comments Assist to help move her leg to the edge of the bed. MODA to stand especially from lower surfaces and pt able to hop on her left foot to get to the BSC, Pt putting her foot on the scale and reading able to keep under 50lbs with good safety. Able to initiate education for pt's to assist with her needs. Pt needing assist to slide her foot forwards before sitting and standing up. OT- Balance Assessment Sitting Balance and Reactions Static Sitting Balance Ability Normal Dynamic Sitting Balance Ability Good Standing Balance and Reactions Static Standing Balance Ability Good Dynamic Standing Balance Ability Fair M8 OT- IP Objective Assessments Start: 12/08/23 15:17 Freq: Status: Active Protocol: Document 12/08/23 15:17 [facility] (Rec: 12/08/23 15:33 [facility] [id number]) OT Gross Range of Motion Upper Extremity Range of Motion Assessment Within Functional Limits OT Strength Upper Extremity Strength Assessment Within Functional Limits M9 OT- IP Assessment and Plan Start: 12/08/23 15:17 Freq: Status: Active Protocol: Document 12/09/23 11:28 [facility] (Rec: 12/09/23 11:45 [facility] [id number]) OT Summary Assessment and Plan Potential Rehabilitation Potential Good Analytic Complexity at Evaluation Moderate Summary OT Impairments Pain,Range of Motion,Strength, Balance,Functional Mobility, Grooming,Dressing,Toileting, Bathing,Toilet Transfers, Shower Transfers,Activity Tolerance Progress Towards Goals Progressing Toward Goals Assessment Summary Pt doing much better today however still having drop in BP and feeling woozy. Pt now just needing one person assist for ADL and mobility needs. Pt looking to go to SNF prior to going home. Goals Self-Feeding Goal Independent Grooming Goal Independent Dressing Goal Standby Assistance Toileting Goal Standby Assistance Bathing Goal Standby Assistance Toilet Transfer Goal Independent Shower Transfer Goal Standby Assistance Days to Meet Goals 15 Frequency of Treatment Other frequency 5x/week Treatment Plan OT Treatment Plan ADL Training,Functional Mobility,Patient/Family Education,Discharge Planning Other Treatment Recommendations and Next Stand at the sink with FWW for Treatment Focus ADL needs and CGA. Discharge Recommendations OT Discharge Recommendations SNF Rehab Transportation Needs at Discharge Wheelchair/Cabulance
--- NOTE | 2023-12-09 12:07 | CM.DPC ---
DCP SNF Planning Per PT/OT, recommending short rehab stay before safe return home as spouse is working to get the house more set up to accommodate pt's new hip fx with repair. BRUCE met bedside with pt and spouse and explained role and they confirm that they feel SNF needed before safe return home. After reviewing SNF Choice list preference is [facility]. BRUCE called [facility] and spoke to DNS Ansley who is doing new admission referrals and she reviewed and confirmed they can accept the pt tomorrow Saturday 12/09 with [facility] transport at 1100. BRUCE completed PAS[facility] and MD signed for exempted discharge due to depression/anxiety and faxed to [facility] and [facility] coordinator for review. BRUCE updated MD on SNF acceptance and transport tomorrow. Plan: BRUCE to follow for plan of d/c to [facility] tomorrow Saturday 12/09 at 1100 via w/c van before safe return home. LANRE Sam[place]go
--- NOTE | 2023-12-09 12:34 | PM.PNPO.1 ---
Subjective Subjective Date Patient Seen: 12/09/23 Time Patient Seen: 12:34 Interval history: Patient states she is feeling better today after the transfusion. Pain is controlled with oral medications. She has been able to work with physical therapy and lift her left leg. Denies any new nausea vomiting fever or chills. No numbness or tingling down her left leg. Exam Vital Signs (past 8 hours): - 12/09/23 08:38 Temperature 97.8 F Pulse Rate 94 H Respiratory Rate 19 Blood Pressure 128/66 Pulse Oximetry 96 Fraction of Inspired Oxygen 28 SaO2/FiO2 Ratio 350 Oxygen Delivery Method Nasal Cannula Oxygen Flow Rate 2 Narrative Exam Narrative: Patient is found sitting in her chair having lunch. 5/5 strength in hip flexors, quadriceps, hamstrings, DF, PF, EHL bilaterally. Sensation to light touch intact throughout BLE. Calves soft, compressible, nontender. ?Dressing placed intraoperatively CDI. Objective Labs 12/09/23 04:12 12/09/23 04:12 Labs: Laboratory Results - last 24 hr 12/08/23 12/09/23 12:30 04:12 WBC 5.6 RBC 2.77 L Hgb 9.8 L 9.0 L Hct 27.8 L 25.6 L MCV 92.2 D MCH 32.6 MCHC 35.3 RDW 14.2 Plt Count 117 L Neut % (Auto) 57.6 Lymph % (Auto) 27.7 [place] % (Auto) 11.2 Eos % (Auto) 2.9 Baso % (Auto) 0.6 Neut # (Auto) 3200 Lymph # (Auto) 1600 [place] # (Auto) 600 Eos # (Auto) 200 Baso # (Auto) 0 Sodium 134 L Potassium 4.0 Chloride 105 Carbon Dioxide 29 BUN 11 Creatinine 0.66 Estimated GFR > 60 BUN/Creatinine Ratio 16.7 Glucose 101 Calcium 8.2 L PFSH Social History household members: spouse Smoking Status: Former smoker alcohol intake: former Assessment & Plan Post-op Postoperative Procedures: Procedures Operation Date: 12/07/23 15:15 Actual Procedure Side Surgeon p left hip open reduction internal fixation- IM nailing of left femur Left Ina Paul MD Postoperative day: 2 Postoperative status: doing well Postoperative plan: routine post-op care and ambulate Postoperative plan narrative: Patient is progressing well. Pain is controlled with oral medication and is ambulating with physical therapy. Current plan is to discharge to SNF for rehabilitation. Patient would like to be in rehab facility the short amount of time. Continue ambulation with assistive devices and working with physical therapy. Multimodal pain control. Aspirin 81 mg twice a day for VTE prevention. Keep dressing on for 2 weeks. Follow up in clinic in 2 weeks for wound check. Time Spent With Patient Time with patient: less than 15 minutes Quality VTE Deep Vein Thrombosis/Pulmonary Embolism Present on Admission: No
[2023-12-09] MEDS: ACETAMINOPHEN 325 MG TABLET 650 MG PO (13:05)
--- NOTE | 2023-12-09 13:37 | PT.IPTN ---
Current Diagnoses Fracture of unspecified part of neck of left femur, initial encounter for closed fracture (12/06/23) Surgery Performed Operation Date: 12/07/23 15:15 Actual Procedures p left hip open reduction internal fixation- IM nailing of left femur(Left) - Ina Paul MD Physical Therapy Treatment Note M2 PT-IP Current Condition Start: 12/08/23 16:10 Freq: NEEDED Status: Active Protocol: Document 12/08/23 14:30 AB (Rec: 12/08/23 16:44 AB [id number]) Physical Therapy Current Condition Current Condition Evaluation Date 12/08/23 Treatment Diagnosis L proximal femur fx s/p ORIF; difficulty in walking Onset Date 12/06/23 M3 PT-IP Subjective Start: 12/08/23 16:10 Freq: NEEDED Status: Active Protocol: Document 12/09/23 13:12 MB (Rec: 12/09/23 13:35 MB [id number]) Subjective Physical Therapy Visit Type Type Treatment Note Visit Start Time 13:12 Visit Stop Time 13:31 Number of LACE BURN OUT TENDER Visits 0 Physical Therapy Visit Comments Patient Comments Pt sitting up in chair and agreeable to PT. Therapy Pain Assessment Pain When Pain Assessed During Mobility Pain Present Pain Present Pain Reported Location Left hip Scale Used Does not rate M4 PT-IP Mobility and Gait Start: 12/08/23 16:10 Freq: NEEDED Status: Active Protocol: Document 12/09/23 13:12 MB (Rec: 12/09/23 13:37 MB [id number]) PT-Transfer Assessment Sit to and From Stand Sit to and from Stand Moderate Assistance,1 Person Assistance,Use of Upper Extremities Equipment Transfer Assistive Device Gait Belt,Front Wheeled Walker Orthotic/Prosthetic Devices or Brace: No Transfers Transfer Destination Bed Transfer Technique Stepping Transfer Ability Level of Assist Moderate Assistance,1 Person Assistance,Use of Upper Extremities Comments Mobility Comments Pt tends to do TDWB close to NWB and she has trouble following commands for bigger steps and keeping walker ahead for forward gait and pulling it back for retropulsion. Attempted ed for retropulsion right foot, left foot and then pull walker back and pt has trouble with this and fatigues quickly. Gait Assessment Gait Gait Assistance Required: Moderate Assistance,1 Person Assist Distance (Feet) 5 Able to Maintain Weight Bearing Status Yes During Gait Assistive Devices Assistive Device Gait Belt,Front Wheeled Walker Orthotic/Prosthetic Devices or Brace: No Gait Deviations General Gait Pattern Antalgic,Decreased Stride Length,Decreased Feet Clearance,Flexed Trunk,Step-to Gait,Wide Based Gait Factors Limiting Gait Function Factors Limiting Gait Function Decreased Activity Tolerance, Decreased Strength,Difficulty Following Directions, Incoordination,Limited Range of Motion,Pain,Poor Balance, Poor Safety Awareness Comments Gait Comments REID and see gait comments above M5 PT-IP Objective Assessments Start: 12/08/23 16:10 Freq: NEEDED Status: Active Protocol: Document 12/08/23 14:30 AB (Rec: 12/08/23 16:44 AB [id number]) Orientation Orientation/Cognition Level of Alertness Alert Orientation Name,Place,Situation Language Function Ability No Deficits Noted Safety Awareness Decreased Safety Awareness Memory Description No Deficits Noted Gross Range of Motion Lower Extremity ROM Impairments LLE tightness and guarding with increase pain with movement Strength Lower Extremity Strength Assessment Left Impaired Hip 2+/5 Knee 3/5 Coordination Assessment Gross Coordination Gross Coordination WNL Muscle Tone Muscle Tone WNL Yes M6 PT-IP Treatment Start: 12/08/23 16:10 Freq: NEEDED Status: Active Protocol: Document 12/09/23 13:12 MB (Rec: 12/09/23 13:35 MB [id number]) Physical Therapy Treatment Exercises Exercises Ankle Pumps Education Education Provided Precautions,Weight Bearing Status,Post-Op Packet,Safety Other Treatments Other Treatment Performed Attempted LAQ in sitting and pt has very little tolerance to LAQ/knee extension and moves minimally M7 PT-IP Assessment and Plan Start: 12/08/23 16:10 Freq: NEEDED Status: Active Protocol: Document 12/09/23 13:12 MB (Rec: 12/09/23 13:35 MB [id number]) PT Summary Assessment and Plan Potential Rehabilitation Potential Fair Status of Condition at Evaluation Evolving Summary Impairments Pain,ROM,Strength,Balance, Coordination,Bed Mobility, Transfers,Gait,Activity Tolerance Progress Towards Goals Slow Progress due to Medical Issues Assessment Summary Pt's BP in LUE takes two times to read sitting EOB and is very low: 86/48, 95 and this likely contributes to REID with short activity and decreased activity tolerance/functional weakness. Communicated with nsg and left pt supine in bed. Recommend SNF at d/c. Goals Bed Mobility Goal Minimal Assistance Transfer Goal Minimal Assistance,Front Wheeled Walker Gait Goal Minimal Assistance,Front Wheel Walker Gait Distance 25 Other Goals improve bed mobility, transfers, ambulation ~ 50 ft using FWW SBA Days to Meet Goals 10 Frequency of Treatment Other frequency 1-2x/day Treatment Plan Physical Therapy Treatment Plan Bed Mobility Training,Transfer Training,Gait Training, Therapeutic Exercise,Balance Retraining,Post Op Education, Discharge Planning,Hot or Cold Pack,Neuromuscular Re-ed, Coordination Retraining,Manual Therapy Weight Bearing Status Weight Bearing Status Partial Weight Bearing Allowed Weight Bearing Amount (enter % Per Dr. Paul's note no or #) (%) greater than 50# on the LLE Recommendations To Nursing Amount of Assist Needed 1 Person Assist Discharge Recommendations PT Discharge Recommendations SNF Rehab Equipment Needed for Home Before FWW, w/c Discharge Transportation Needs at Discharge Wheelchair/Cabulance
--- NOTE | 2023-12-09 14:40 | PC.NURSE ---
ice packs applied to right shoulder and left hip per request from patient
[2023-12-09 19:00] VITALS: BP 103/46; PULSE 90; RESP 18; TEMP 36.7; O2SAT 98
[2023-12-09] MEDS: SENNOSIDES 8.6 MG TABLET 17.2 MG PO (20:46)
[2023-12-10] MEDS: HYDROCODONE/ACET 5/325 TABLET 1 TAB PO ×2 (01:42→08:58)
--- NOTE | 2023-12-10 07:54 | PM.PN.1 ---
Subjective Subjective Interval history: Pauline is a pleasant 73 year old female who is POD#3 s/p IMN of left femur for a left proximal femur fracture by Dr. Paul. This morning she reports she is doing well, feels overall improved from yesterday. Pain is mild-moderate and well controlled w/ current pain medication. Denies fever, chills, chest pain, SOB, nausea, vomiting. Operative Date/Time/Diagnoses Date of procedure: 12/07/23 Time of procedure: 14:19 Pre-op diagnosis: Left proximal femur fracture Post-op diagnosis: same Procedure & Clinicians Procedure: IM nail left proximal femur fracture Same procedure as scheduled: Yes Indications: This is a 73-year-old female who fell and sustained a comminuted left proximal femur fracture. She was brought the operating room for intramedullary nailing. The procedure options risks benefits and complications were discussed in detail. She does have a comminuted fracture. Surgeon: Ina Paul Click Yes if Unassisted: Yes Anesthesia Type: General and Spinal Exam Vital Signs (past 8 hours): Fraction of Inspired Oxygen 28 SaO2/FiO2 Ratio 350 Oxygen Delivery Method Nasal Cannula Oxygen Flow Rate 2 Narrative Exam Narrative: Patient lying comfortably in bed during our interview today. No acute distress. AOx3. Grossly normal alignment of the LLE. 5/5 strength with DF, PF, EHL bilaterally. Gross sensation intact throughout bilateral lower extremities. Calves soft and non-tender bilaterally. SCDs are on and functioning. Brisk capillary refill, pulses intact. Post-surgical Aquacel dressing clean, dry and intact over the left hip without drainage. Objective Labs 12/09/23 04:12 12/09/23 04:12 [facility] Social History household members: spouse Smoking Status: Former smoker alcohol intake: former Assessment & Plan Assessment & Plan narrative: 1) Discharge disposition per medicine. 2) Continue multimodal pain management with ice to the hip for additional pain control. 3) ASA b.i.d. for DVT prophylaxis. 4) Partial weight-bearing on the left lower extremity 50 lb max. 5) Keep the incision site clean and dry. Dressing can remain on until 2 weeks post-op appt. No soaking the incision site in pools or tubs. No topical ointments or creams to the incision site. 6) Follow up at [facility] orthopedics in 2 weeks for a postop appointment and wound check. All patient's questions were answered, they demonstrates understanding and are in agreement with the plan. Call our office if any questions or concerns arise. Time-Based Coding :: [TOTAL MINUTES] spent with patient and on the chart (including review of chart, obtaining history, exam, reviewing outside data, placing orders, documenting exam and treatment plan, and counseling patient) on [DATE]. Quality VTE Deep Vein Thrombosis/Pulmonary Embolism Present on Admission: No
[2023-12-10] MEDS: ASPIRIN EC 81 MG TABLET PO (08:58)
[2023-12-10] MEDS: Sacubitril-Valsartan [Entresto] 24-26 mg tablet 1 EACH PO (08:58)
[2023-12-10] MEDS: DOCUSATE 100 MG CAPSULE PO (08:59)
[2023-12-10] MEDS: DULOXETINE 20 MG CAPSULE PO (08:59)
[2023-12-10 09:01] VITALS: BP 101/46; PULSE 90; RESP 20; TEMP 36.1; O2SAT 96
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
--- NOTE | 2023-12-10 11:03 | PC.NURSE ---
Day shift: Left unit a approx 1100. Spouse in room as well and is aware of plan for [facility]. Pt has all personal belongings. Transport person has SNF packet. Meds returned to Pt from pharmacy as well. Pt has voided post-[place]. Also had a BM today. Report given to RN at [facility] at approx 1105. All questions answered.
--- NOTE | 2023-12-10 11:55 | CM.DPC ---
DCP Continued: Reviewed EMR and team rounds for pt?s medical status.Pt set to discharge to [facility] at 1100 via [facility]. DCP notified hospitalist, JENNIFER and pt's RN (provided with RN-RN report ph#). Plan: Patient to discharge to SNF via [facility] at 1100. CM Team will continue to follow for coordination of discharge plans. KAYLEE Echevarria
== END 2023-12-10 11:07 | DRG 481 ==
LOC: ED 13:04 → AC 13:09
PROVIDERS: Internal Medicine; Orthopaedic Surgery; Admitting Provider Hospitalist; Emergency Provider Student in an Organized Health Care Education/Training Program; Referring Provider Student in an Organized Health Care Education/Training Program; Visit Provider Hospitalist
PROC: 0QS706Z Reposition Left Upper Femur with Intramedullary Internal Fixation Device, Open Approach (ICD-10-PCS; CPT 27245; principal; 2023-12-07 15:15)
DX: S72.142A Displaced intertrochanteric fracture of left femur, initial encounter for closed fracture (principal); D62 Acute posthemorrhagic anemia; N17.9 Acute kidney failure, unspecified; I10 Essential (primary) hypertension; I25.10 Atherosclerotic heart disease of native coronary artery without angina pectoris; W01.0XXA Fall on same level from slipping, tripping and stumbling without subsequent striking against object, initial encounter; Y92.814 Boat as the place of occurrence of the external cause; Z87.891 Personal history of nicotine dependence
CPT/HCPCS: 36415; 36430; 73502; 73560; 76000; 80048; 80053; 81001; 82550; 82962; 85014; 85018; 85025; 85027; 85610; 85730; 86850; 86900; 86901; 94760; 94762; 96374; 96375; 97163; 97166; 97530; 97535; 99285; P9016; C9290; J0134; J0690; J1170; J2250; J2270; J2405; J2704; J3010